=== PATIENT | female | born 1935 | race Caucasian/White ===

== ENCOUNTER 2017-07-31 17:01 | Inpatient (IN) | payer MEDICARE, BC ==
[~2017-07-31] VITALS: Ht 162.6 cm; Wt 65.1 kg
[2017-07-31 17:39] VITALS: BP 150/78
[2017-07-31] MEDS ORDERED: POTA10CA PO (19:17)
[2017-07-31] MEDS ORDERED: ALBU2.5V5 NEB (19:17)
[2017-07-31] MEDS ORDERED: TRIA15CR50 TP (19:17)
[2017-07-31] MEDS ORDERED: OXYC-323 PO (19:17)
[2017-07-31] MEDS ORDERED: LACT1CAP21 PO (19:17)
[2017-07-31] MEDS ORDERED: IPRA3AMP NEB (19:17)
[2017-07-31] MEDS ORDERED: BUDE0.5A3 NEB (19:17)
[2017-07-31] MEDS ORDERED: ALBUTEROL SULFATE 2.5 MG/3 ML NEBU. NEB PRN (20:45)
[2017-07-31] MEDS: TRIAMCINOLONE ACETONIDE 0.5% TOPICAL CREAM 15GM TUBE. TP SCH (21:00)
[2017-07-31] MEDS: BUDESONIDE 0.5 MG/2 ML NEBU NEB SCH (21:35)
[2017-07-31] MEDS: IPRATRPIUM/ALBUTEROL 0.5/2.5MG 3 ML NEBU. NEB SCH (21:35)
[2017-07-31] MEDS: LACTOBACILLUS RHAMNOSUS GG 1 CAPSULE. PO SCH (22:04)
[2017-08-01 05:57] VITALS: BP 135/72
[2017-08-01] MEDS: IPRATRPIUM/ALBUTEROL 0.5/2.5MG 3 ML NEBU. NEB SCH ×4 (05:57→21:58)
[2017-08-01 07:26] LABS: BASO % 0 % (0-3); EOS # 0.5 x10^3/uL (0.0-0.7); EOS % 3 % (0-3); HEMATOCRIT 26.2 % (36.0-47.0); HEMOGLOBIN 8.7 g/dL (12.0-15.5); LYMPH # 1.8 x10^3/uL (1.0-4.8); LYMPH % 11 % (24-48); MEAN CORPUSCULAR HEMOGLOBIN 33 pg (25-35); MEAN CORPUSCULAR HGB CONC 33 g/dL (31-37); MEAN CORPUSCULAR VOLUME 99 fL (79-100); MONO % 6 % (0-9); NEUT # 12.7 x10^3uL (1.8-7.7); NEUT % 80 % (31-73); PLATELET COUNT 222 x10^3/uL (140-400); RED BLOOD COUNT 2.63 x10^6/uL (3.50-5.40); RED CELL DISTRIBUTION WIDTH 14.7 % (11.5-14.5)
[2017-08-01 07:53] LABS: ALBUMIN 1.9 g/dL (3.4-5.0); ALBUMIN/GLOBULIN RATIO 0.5 (1.0-1.7); MAGNESIUM 1.9 mg/dL (1.8-2.4); POTASSIUM 3.7 mmol/L (3.5-5.1); TOTAL BILIRUBIN 0.7 mg/dL (0.2-1.0); TOTAL PROTEIN 5.5 g/dL (6.4-8.2)
[2017-08-01] MEDS: LACTOBACILLUS RHAMNOSUS GG 1 CAPSULE. PO SCH ×2 (08:19→19:52)
[2017-08-01] MEDS: TRIAMCINOLONE ACETONIDE 0.5% TOPICAL CREAM 15GM TUBE. TP SCH ×2 (08:20→19:53)
[2017-08-01] MEDS: POTASSIUM CHLORIDE 10 MEQ TABLET.ER. PO SCH ×4 (08:20→19:53)
[2017-08-01 08:28] LABS: % BANDS 2 % (0-9); % EOS 2 % (0-5); % LYMPHS 11 % (24-48); % MONOS 3 % (0-10); % SEGS 82 % (35-66); PLT ESTIMATE ADEQUATE (ADEQUATE)
[2017-08-01 08:29] LABS: ANISOCYTOSIS PRESENT; HYPOCHROMIA SLIGHT; POLYCHROMASIA PRESENT; TOXIC GRANULATION MOD
[2017-08-01] MEDS: BUDESONIDE 0.5 MG/2 ML NEBU NEB SCH ×2 (10:27→21:58)
[2017-08-01 15:31] VITALS: BP 138/54
--- NOTE | 2017-08-01 19:22 | HP ---
ADMIT DATE: 07/31/2017 SWING BED HISTORY AND PHYSICAL HISTORY OF PRESENT ILLNESS: This is an 82-year-old female who was transferred to swing bed status at [facility] from [facility]. She had been admitted to [facility] on 07/21/2017 for acute appendicitis. At that time, she had a ruptured appendicitis with abscess. She underwent a laparoscopic appendectomy and had difficulty with getting off intubation. She had bilateral pneumonia. She also had third degree heart block requiring low dose dopamine and pacemaker and subsequently had been on a ventilator for several days. She is weakened to the point of needing rehab and so admitted to swing bed. PAST MEDICAL HISTORY: 1. Recent ruptured appendix. 2. Status post laparoscopic appendectomy. 3. Acute hypoxic respiratory failure with bilateral lung infiltrates. This is resolved. 4. Moderate aortic insufficiency. 5. Third-degree AV block, now with pacemaker. 6. Renal insufficiency. 7. Increased troponin. 8. Hypertension. 9. Hyperlipidemia. 10. Bradycardia with third-degree block. 11. Osteoarthritis. PAST SURGICAL HISTORY: Cataract removal, hysterectomy, now appendectomy. FAMILY HISTORY: Diabetes and hypertension. SOCIAL HISTORY: Heavy alcohol user. Drugs: None. Tobacco: None. REVIEW OF SYSTEMS: The patient states she just feels achy and weak. MEDICATIONS: Reviewed and reconciled. ALLERGIES: None. PHYSICAL EXAMINATION: VITAL SIGNS: Blood pressure 135/72, pulse 75, temperature 97.7, pulse ox 93% on 2 liters, height 64 inches, weight 147 pounds. GENERAL: An 82-year-old who looks her stated age. She is calm and cooperative and alert. SKIN: Aged in appearance. HEENT: Her eyes are clear. Nose patent. Throat clear. NECK: Supple without adenopathy. LUNGS: Clear to auscultation. CARDIOVASCULAR: Regular rhythm and rate with a 2-3/6 murmur heard at the aortic and pulmonic area. ABDOMEN: Soft. Laparoscopic scars noted, nontender. EXTREMITIES: Without edema. LABORATORY DATA: White blood cell count 16,000, did have steroids at [place]. Hemoglobin 8.7, hematocrit 26.2. Chemistry: BUN 25, creatinine 1.0, calcium is 8, albumin is 1.9. ASSESSMENT: 1. Weakness. 2. Oropharyngeal dysphagia. 3. Status post appendectomy. 4. Status post acute hypoxic respiratory failure. 5. History of alcohol abuse. 6. Hypertension. 7. Severe protein-calorie malnutrition. We will need supplements. 8. Third degree heart block, now has a pacemaker. PLAN: PT, OT, speech assisting. TIM GAYLE DO DR: LATRELL/janet JOB#: [id number] / [id number]
[2017-08-02 05:54] VITALS: BP 169/83
[2017-08-02] MEDS: IPRATRPIUM/ALBUTEROL 0.5/2.5MG 3 ML NEBU. NEB SCH ×4 (06:04→21:08)
[2017-08-02] MEDS: TRIAMCINOLONE ACETONIDE 0.5% TOPICAL CREAM 15GM TUBE. TP SCH ×2 (08:51→20:23)
[2017-08-02] MEDS: LACTOBACILLUS RHAMNOSUS GG 1 CAPSULE. PO SCH ×2 (08:51→20:22)
[2017-08-02] MEDS: BUDESONIDE 0.5 MG/2 ML NEBU NEB SCH ×2 (10:51→21:08)
[2017-08-02] MEDS: HYDROCORTISONE 2.5% TOPICAL OINTMENT 30GM TUBE. TP SCH ×2 (12:10→14:00)
[2017-08-02] MEDS: POTASSIUM CHLORIDE 10 MEQ TABLET.ER. PO SCH ×2 (12:10→17:28)
[2017-08-03 05:12] VITALS: BP 165/66
[2017-08-03] MEDS: IPRATRPIUM/ALBUTEROL 0.5/2.5MG 3 ML NEBU. NEB SCH ×4 (06:12→21:00)
--- NOTE | 2017-08-03 07:55 | PN ---
DATE: 08/02/2017 HALF-WAY PROGRESS NOTE PROBLEMS: To address anterior chest wall rash and weakness. SUBJECTIVE: This is an 82-year-old female, who was admitted yesterday to the swing bed at [facility] from [place] where she has had a very prolonged hospitalization with multiple problems. Noted yesterday, she did have a little bit of a rash, though I did comment on it, but will take a closer look today. She still feels extremely weak. OBJECTIVE: VITAL SIGNS: Blood pressure 169/83, temperature 97.5, pulse 76, respirations 16, pulse ox is 98% on 2.5 liters. GENERAL: Color again is somewhat pale. LUNGS: Clear. CARDIOVASCULAR: Regular rhythm and rate. ABDOMEN: Soft, nontender. SKIN: The patient has flat macular erythematous rash, which looks consistent with dermatitis secondary to the chest leads around and in the areas where she had telemetry leads on. LABORATORY DATA: From yesterday albumin is 1.9. White blood cell count is 16, hemoglobin 8.7, hematocrit 26.2. ASSESSMENT: 1. Weakness. 2. Contact dermatitis. 3. Normochromic normocytic anemia. 4. Severe protein-calorie malnutrition. 5. Debilitation from previous hospitalization. 6. Please see H and P for other diagnoses. PLAN: Hydrocortisone 2.5% cream twice a day, keep an eye on that. Recheck her labs. Continue with PT and OT and may check a chest x-ray. TIM GAYLE DO DR: LATRELL/janet JOB#: [id number] / [id number]
[2017-08-03] MEDS: LACTOBACILLUS RHAMNOSUS GG 1 CAPSULE. PO SCH ×2 (08:49→19:41)
[2017-08-03] MEDS: POTASSIUM CHLORIDE 10 MEQ TABLET.ER. PO SCH ×3 (08:49→17:30)
[2017-08-03] MEDS: TRIAMCINOLONE ACETONIDE 0.5% TOPICAL CREAM 15GM TUBE. TP SCH ×2 (08:50→19:42)
[2017-08-03] MEDS: HYDROCORTISONE 2.5% TOPICAL OINTMENT 30GM TUBE. TP SCH ×2 (08:50→14:00)
[2017-08-03] MEDS: BUDESONIDE 0.5 MG/2 ML NEBU NEB SCH ×2 (10:34→21:00)
[2017-08-03 18:26] VITALS: BP 99/58
[2017-08-04] MEDS: IPRATRPIUM/ALBUTEROL 0.5/2.5MG 3 ML NEBU. NEB SCH ×4 (05:44→22:04)
[2017-08-04 06:06] VITALS: BP 139/63
[2017-08-04] MEDS: BUDESONIDE 0.5 MG/2 ML NEBU NEB SCH ×2 (09:34→22:03)
[2017-08-04] MEDS: POTASSIUM CHLORIDE 10 MEQ TABLET.ER. PO SCH ×3 (10:16→17:28)
[2017-08-04] MEDS: LACTOBACILLUS RHAMNOSUS GG 1 CAPSULE. PO SCH ×2 (10:16→20:06)
[2017-08-04] MEDS: HYDROCORTISONE 2.5% TOPICAL OINTMENT 30GM TUBE. TP SCH ×2 (10:16→14:15)
[2017-08-04] MEDS: TRIAMCINOLONE ACETONIDE 0.5% TOPICAL CREAM 15GM TUBE. TP SCH ×2 (10:16→20:07)
[2017-08-04 15:17] VITALS: BP 148/64
[2017-08-04 20:21] VITALS: BP 138/56
[2017-08-05 05:38] VITALS: BP 150/74
[2017-08-05] MEDS: IPRATRPIUM/ALBUTEROL 0.5/2.5MG 3 ML NEBU. NEB SCH ×4 (05:54→21:48)
[2017-08-05 06:42] LABS: HEMATOCRIT 25.8 % (36.0-47.0); HEMOGLOBIN 8.5 g/dL (12.0-15.5); RED BLOOD COUNT 2.59 x10^6/uL (3.50-5.40); WHITE BLOOD COUNT 9.4 x10^3/uL (4.0-11.0)
[2017-08-05 07:00] LABS: ALBUMIN 2.2 g/dL (3.4-5.0); ALBUMIN/GLOBULIN RATIO 0.6 (1.0-1.7); CALCIUM 8.2 mg/dL (8.5-10.1); POTASSIUM 4.4 mmol/L (3.5-5.1); TOTAL BILIRUBIN 0.8 mg/dL (0.2-1.0); TOTAL PROTEIN 5.9 g/dL (6.4-8.2)
[2017-08-05] MEDS: TRIAMCINOLONE ACETONIDE 0.5% TOPICAL CREAM 15GM TUBE. TP SCH ×2 (08:20→19:58)
[2017-08-05] MEDS: HYDROCORTISONE 2.5% TOPICAL OINTMENT 30GM TUBE. TP SCH ×2 (08:20→17:13)
[2017-08-05] MEDS: LACTOBACILLUS RHAMNOSUS GG 1 CAPSULE. PO SCH ×2 (08:20→19:52)
[2017-08-05] MEDS: POTASSIUM CHLORIDE 10 MEQ TABLET.ER. PO SCH ×3 (08:21→17:13)
[2017-08-05] MEDS: BUDESONIDE 0.5 MG/2 ML NEBU NEB SCH ×2 (10:36→21:48)
[2017-08-05] MEDS: DRONABINOL 2.5 MG CAPSULE PO SCH ×2 (11:35→16:36)
[2017-08-05 18:08] VITALS: BP 150/61
--- NOTE | 2017-08-05 19:18 | RAD ---
INDICATION: Left arm swelling. TECHNIQUE: Grayscale, color-flow, and spectral waveform analysis was performed. Exam was technically difficult, recent pacemaker placement limiting evaluation. FINDINGS: All visualized vein segments on the left are compressible with normal phasicity of waveform and augmentation. The left subclavian vein is difficult to evaluate. The right subclavian vein is evaluated and there is eccentric nonocclusive thrombus noted which may be chronic. There is fluid about the pacemaker cartridge. IMPRESSION: 1. No evidence of deep vein thrombosis in the visualized left upper extremity. Left subclavian vein not well evaluated. 2. 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 3. Small amount of fluid about the pacemaker cartridge. Electronically signed by: Marcellus Lim MD (08/05/2017 7:15 PM) [id number]
[2017-08-05] MEDS: oxyCODONE/APAP 5/325 1 TAB TABLET PO PRN (19:53)
[2017-08-06 04:57] VITALS: BP_SYST 152; BP_SYST 158; BP_DIAS 68; BP_DIAS 74
[2017-08-06] MEDS: IPRATRPIUM/ALBUTEROL 0.5/2.5MG 3 ML NEBU. NEB SCH ×4 (05:39→21:42)
[2017-08-06] MEDS: LACTOBACILLUS RHAMNOSUS GG 1 CAPSULE. PO SCH ×2 (08:25→20:02)
[2017-08-06] MEDS: POTASSIUM CHLORIDE 10 MEQ TABLET.ER. PO SCH ×3 (08:25→17:08)
[2017-08-06] MEDS: HYDROCORTISONE 2.5% TOPICAL OINTMENT 30GM TUBE. TP SCH ×2 (08:26→13:59)
[2017-08-06] MEDS: TRIAMCINOLONE ACETONIDE 0.5% TOPICAL CREAM 15GM TUBE. TP SCH ×2 (08:26→20:02)
[2017-08-06] MEDS: BUDESONIDE 0.5 MG/2 ML NEBU NEB SCH ×2 (11:29→21:42)
[2017-08-06] MEDS: DRONABINOL 2.5 MG CAPSULE PO SCH ×2 (12:16→17:08)
[2017-08-06] MEDS: NYSTATIN 100,000 UNIT/GM TOPICAL CREAM 15GM TUBE. TP SCH ×2 (13:55→20:04)
[2017-08-06 18:12] VITALS: BP 151/72
[2017-08-06 19:03] VITALS: BP 121/57
--- NOTE | 2017-08-07 04:30 | PN ---
DATE: 08/06/2017 SUBJECTIVE: The patient is an 82-year-old female patient who was transferred to swing bed at [facility] from [facility] and she had been admitted to [facility] since 07/21/2017 for acute appendicitis. At that time, she had had ruptured appendicitis with abscess. She underwent a laparoscopic appendectomy and had difficulty with getting off intubation. She had bilateral pneumonia. She also had third degree heart block requiring low-dose dopamine and pacemaker placement. She was successfully extubated; however, she is extremely weakened, and therefore, she was admitted to swing bed for further rehabilitation. The nursing staff are concerned that she has markedly swollen left upper extremity. She was in shoulder immobilizer and she has a pacemaker placed in the left infraclavicular fossa. She has also gained about 21 pounds since admission to [facility], she was 128 and now is about 148 and so I did venous Doppler ultrasound of the left upper extremity, which was basically negative. When I questioned her today, she denied any complaint. In fact, she is more awake today and alert. She has been participating with physical therapy, walking with a walker. Generally, appetite continued to be poor, although according to the nursing staff, she has eaten more. I did start her on Marinol 2.5 mg twice a day. PHYSICAL EXAMINATION: GENERAL: When I examined her today, she looked well and was clearly in no apparent respiratory distress and pale, but no jaundice, cyanosis or thyromegaly. No jugular venous distension. No lower limb edema. VITAL SIGNS: Her heart rate was 88, blood pressure 158/74, temperature was 98.1, respiratory rate 18 and oxygen saturation was 95% on 2 liters of oxygen. HEAD, EYES, EARS, NOSE AND THROAT: Showed normocephalic, atraumatic. NECK: Supple. HEART: Showed normal first and second heart sounds with no gallop, rub or murmur. CHEST: Clear to auscultation. No crepitation or rhonchi. ABDOMEN: Distended, soft, nontender. No guarding or rigidity. No organomegaly. Hernial orifice intact. Bowel sounds normal. NEUROLOGIC: She was awake, alert, responding appropriately. All cranial nerves intact. MUSCULOSKELETAL: She moves extremities without difficulty. She ambulates with a walker with standby assist. Examination of the upper extremities showed the left upper extremity definitely more swollen than the right upper extremity. The surgical wound in the left infraclavicular fossa is healing nicely with no redness, tenderness or discharge. There is no fluid collection around the pacemaker and according to the sonographist, there is no DVT in the left upper extremity. There is nonocclusive thrombus in the right subclavian vein. LABORATORY DATA: Showed that her serum sodium was 141, potassium 4.4, chloride 107, bicarbonate 21, anion gap of 13, BUN of 9, creatinine 1. Estimated GFR was 53 mL per minute. Her glucose was 69. Calcium was 8.2. Total bilirubin, AST, ALT, alkaline phosphatase were normal. Total protein 5.9. Albumin 2.2. Her white cell count was 9400, hemoglobin 8.5, hematocrit 26, MCV 100 and platelet count 255,000. IMPRESSION: In summary, this is an 82-year-old female patient whom I have seen with: 1. Marked swelling of the left upper extremity, which is probably a combination of the fact that she has a pacemaker leads in the left subclavian vein as well as she was in shoulder immobilizer. Her venous Doppler ultrasound was negative. She has severe anorexia and poor appetite for which we started her on Marinol and apparently she is now eating a little bit more. 2. She has gained about 20 pounds since admission to the [facility] and she definitely has swelling of both lower extremities and left upper extremity. Other issues include: a) Ruptured appendix, status post laparoscopic appendectomy. b) Acute hypoxic respiratory failure, bilateral lung infiltrate that has resolved. c) Moderate aortic insufficiency. d) Third degree AV block, status post permanent pacemaker placement. e) Renal insufficiency. f) Hypertension. g) Hyperlipidemia. h) Osteoarthritis. PLAN: My plan is to start her on a small dose of Lasix 20 mg once a day starting tomorrow. We will monitor her weight and lab work on a regular basis. DICK MOREJON MD DR: ARUN/janet JOB#: [id number] / [id number]
[2017-08-07] MEDS: IPRATRPIUM/ALBUTEROL 0.5/2.5MG 3 ML NEBU. NEB SCH ×4 (05:41→21:31)
[2017-08-07 06:01] VITALS: BP 135/59
[2017-08-07] MEDS: LACTOBACILLUS RHAMNOSUS GG 1 CAPSULE. PO SCH ×2 (08:24→21:06)
[2017-08-07] MEDS: DRONABINOL 2.5 MG CAPSULE PO SCH ×2 (08:24→17:28)
[2017-08-07] MEDS: FUROSEMIDE 20 MG TABLET PO SCH (08:24)
[2017-08-07] MEDS: POTASSIUM CHLORIDE 10 MEQ TABLET.ER. PO SCH ×3 (08:24→17:30)
[2017-08-07] MEDS: NYSTATIN 100,000 UNIT/GM TOPICAL CREAM 15GM TUBE. TP SCH ×2 (09:00→21:00)
[2017-08-07] MEDS: BUDESONIDE 0.5 MG/2 ML NEBU NEB SCH ×2 (10:23→21:31)
[2017-08-07] MEDS: oxyCODONE/APAP 5/325 1 TAB TABLET PO PRN (11:00)
[2017-08-07] MEDS: TRIAMCINOLONE ACETONIDE 0.5% TOPICAL CREAM 15GM TUBE. TP SCH ×2 (17:29→21:07)
[2017-08-07] MEDS: HYDROCORTISONE 2.5% TOPICAL OINTMENT 30GM TUBE. TP SCH ×2 (17:29→17:30)
[2017-08-07 19:28] VITALS: BP 167/52
[2017-08-07] MEDS: MELATONIN 3 MG TABLET PO PRN (21:16)
[2017-08-08] MEDS: IPRATRPIUM/ALBUTEROL 0.5/2.5MG 3 ML NEBU. NEB SCH ×4 (06:05→22:13)
[2017-08-08 06:28] VITALS: BP 153/64
[2017-08-08 07:24] LABS: CALCIUM 8.3 mg/dL (8.5-10.1); CREATININE 1.1 mg/dL (0.6-1.0); GFR 47.4; POTASSIUM 4.2 mmol/L (3.5-5.1)
[2017-08-08] MEDS: POTASSIUM CHLORIDE 10 MEQ TABLET.ER. PO SCH ×3 (08:08→18:25)
[2017-08-08] MEDS: FUROSEMIDE 20 MG TABLET PO SCH (08:08)
[2017-08-08] MEDS: LACTOBACILLUS RHAMNOSUS GG 1 CAPSULE. PO SCH ×2 (08:08→21:28)
--- NOTE | 2017-08-08 09:24 | PDOC2 ---
TALIA RODAS ELECTRIC SOLDERER 08/08/17 0923: CONSULT Date of Admission DATE: 08/08/17 TIME: 09:23 Reason for Consult: edema left upper arm s/p ppm History of Present Illness Ms Somers is an 82 year old female recently admitted to [facility] with perforated appendix and underwent emergent appendectomy. She developed high grade AV block and subsequently underwent pacemaker placement. At discharge it was felt she required skilled care so was transferred to [facility]. She was noted to have gained significant weight during her admission and actually her shoes and clothes were not fitting. Also it was noted that her left upper arm was significantly swollen. Sonogram failed to demonstrate DVT however. She denies any dyspnea , chest discomfort, palpitations. She complains of edema in the left arm and her legs. She reports that otherwise she is feeling much better. Past Medical History echo 07/22/17 The left ventricle is hyperdynamic. The Ejection Fraction is 60%. There is mild to moderate concentric left ventricular hypertrophy. Transmitral Doppler flow pattern is Grade II-pseudonormal filling dynamics. The left atrium is moderately dilated. The right atrium is mildly dilated. Poor visualization of the aortic valve. The aortic valve is moderately calcified. Doppler and Color Flow revealed moderate aortic regurgitation. There is mild valvular aortic stenosis. Doppler and Color-flow revealed severe mitral regurgitation. Mitral annular calcification is mild to moderate. Doppler and Color Flow revealed mild to moderate tricuspid regurgitation. The PA pressure was estimated to be 37 mmHg but it may be significantly higher. Not able to visualize the pulmonic valve. No significant pericardial effusion PAST MEDICAL/SURGICAL HISTORY: Pacemaker placement, appendectomy, cataract extraction, lens implants, severe mitral regurg, moderate aortic regurg, off and on diarrhea, arthritis, depression, anxiety. Family History non contributory Social History non smoker, prior heavy drinker, no illicit drugs Current Medications Current Medications Albuterol Sulfate (Ventolin) 2.5 mg PRN Q4HRS PRN NEB SHORTNESS OF BREATH; Start 07/31/17 at 20:45 Budesonide (Pulmicort) 0.5 mg BID NEB Last administered on 08/07/17at 21:31; Start 07/31/17 at 21:00 Albuterol/ Ipratropium (Duoneb) 3 ml QID NEB Last administered on 08/08/17at 06: 05; Start 07/31/17 at 21:00 Oxycodone/ Acetaminophen (Percocet 5/325) 1 tab PRN Q4HRS PRN PO PAIN Last administered on 08/07/17 11:00; Start 07/31/17 at 20:45 Triamcinolone Acetonide (Aristocort) 1 opal BID TP Last administered on 21:07; Start 07/31/17 at 21:00 Lactobacillus Rhamnosus (Culturelle) 1 cap BID PO Last administered on 08:08; Start 07/31/17 at 21:00 Potassium Chloride (Klor-Con) 10 meq TIDPC PO Last administered on 08/08/17 08: 08; Start 08/01/17 at 08:30 Hydrocortisone (Hytone) 1 opal BID92 TP Last administered on 08/07/17 17:30; Start 08/02/17 at 09:00 Dronabinol (Marinol) 2.5 mg BIDACLD PO Last administered on 08/07/17 17:28; Start 08/05/17 at 11:30 Nystatin (Mycostatin) 1 opal BID TP Last administered on 08/07/17 21:00; Start 08/06/17 at 09:00 Furosemide (Lasix) 20 mg DAILY PO Last administered on 08/08/17 08:08; Start at 09:00 Melatonin 3 mg PRN QHS PRN PO INSOMNIA Last administered on 08/07/17 21:16; Start 08/07/17 at 20:45 Active Scripts Active Reported Percocet 5-325 Mg Tablet (Oxycodone Hcl/Acetaminophen) 1 Each Tablet 1 Tab PO PRN Q4HRS PRN Triamcinolone Acetonide 15 Gm Cream..g. 1 Opal TP BID Potassium Chloride 10 Meq Capsule.er 1 Cap PO TIDPC Culturelle (Lactobacillus Rhamnosus Gg) 1 Each Capsule 1 Each PO BID Duoneb 0.5-3(2.5) Mg/3 Ml (Albuterol/Ipratropium) 3 Ml Ampul.neb 3 Ml NEB QID Pulmicort (Budesonide) 0.5 Mg/2 Ml Ampul.neb 1 Vial NEB BID Albuterol Sulfate Neb Soln (Albuterol Sulfate) 2.5 Mg/3 Ml Vial.neb 1 Vial NEB PRN Q4HRS PRN Allergies: Coded Allergies: No Known Drug Allergies (Unverified , 07/31/17) Review of System as per HPI General: Alert, Oriented X3, Cooperative, No acute distress HEENT: Atraumatic, EOMI Lungs: Clear to auscultation, Normal air movement Heart: Regular rate, Normal S1, Normal S2, Other (+2/6 systolic murmur, soft diastolic murmur, no gallops, clicks or rubs) Abdomen: Normal bowel sounds, Soft, No tenderness Extremities: Normal pulses, Other (+2edema, bilateral lower extremities and left upper extremity) Neuro: Normal speech, Strength at 5/5 X4 ext Psych/Mental Status: Mental status NL, Mood NL VITALS Vital Signs Date Time Temp Pulse Resp B/P (MAP) Pulse Ox O2 Delivery O2 Flow Rate FiO2 08/08/17 08:00 Nasal Cannula 2.0 08/08/17 06:28 97.8 83 20 153/64 (93) 98 Labs Laboratory Tests Test 08/07/17 16:32 08/08/17 07:07 Glucose (Fingerstick) 114 mg/dL (70-99) Sodium Level 139 mmol/L (136-145) Potassium Level 4.2 mmol/L (3.5-5.1) Chloride Level 104 mmol/L (98-107) Carbon Dioxide Level 26 mmol/L (21-32) Anion Gap 9 (6-14) Blood Urea Nitrogen 10 mg/dL (7-20) Creatinine 1.1 mg/dL (0.6-1.0) Estimated GFR (Cockcroft-Gault) 47.4 Glucose Level 91 mg/dL (70-99) Calcium Level 8.3 mg/dL (8.5-10.1) Images sono - IMPRESSION: 1. No evidence of deep vein thrombosis in the visualized left upper extremity. Left subclavian vein not well evaluated. 2. 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 3. Small amount of fluid about the pacemaker cartridge. Assessment/Plan 1. Upper extremity edema - sono negative for DVT, likely dependant 2. SSS s/p PPM - inc healing with mild edema but no erythema or signs of infection 3. hypertension resume antihypertensives 4. VHD - sees Dr Oropeza 5. hyperlipidemia - statin Resume antihypertensives, continue diuretic for edema and statin therapy for hyperlipidemia. Problems: CAMI CHURCH MD 08/08/17 1736: CONSULT Allergies: Coded Allergies: No Known Drug Allergies (Unverified , 07/31/17) Assessment/Plan Patient seen and examined. Agree with TANGLED YARN WORKER's assessment and plan. Left upper extremity edema most probably dependent edema in the background of generalized anasarca from hypoalbuminemia Cannot rule out her mild acute on chronic diastolic heart failure as well We will diurese gently with Lasix Recent 2-D echo showed normal LV function with severe mitral regurgitation as stated above Left upper extremity venous duplex scan did not show any deep venous thrombosis Pacemaker appears to be functioning well Thank you for your consultation Problems: TALIA RODAS APRN Aug 08, 2017 09:23 CAMI CHURCH MD Aug 08, 2017 17:36
[2017-08-08] MEDS: BUDESONIDE 0.5 MG/2 ML NEBU NEB SCH ×2 (10:44→22:13)
[2017-08-08] MEDS: DRONABINOL 2.5 MG CAPSULE PO SCH ×2 (13:56→18:25)
[2017-08-08] MEDS: HYDROCORTISONE 2.5% TOPICAL OINTMENT 30GM TUBE. TP SCH (14:00)
--- NOTE | 2017-08-08 14:15 | PN ---
DATE: 08/07/2017 SUBJECTIVE: The spleen is sitting in her chair comfortably, in no apparent distress. She is definitely more awake, alert, although continued to be somewhat confused occasionally. Her mobility has improved, has been up and about walking with a walker without assistance. She continued to have swelling of her left upper extremity. We did Doppler ultrasound, which showed no evidence of any deep vein thrombosis. I did start her on Lasix this morning and her appetite continued to be extremely poor and we did start her on dronabinol. OBJECTIVE: GENERAL: When I examined her this afternoon, she looked well and was clearly in no apparent respiratory distress. Pale. No jaundice, cyanosis, or thyromegaly. No jugular venous distension. No limb edema. VITAL SIGNS: Her heart rate was 81, blood pressure was 135/59, temperature was 97.8, respiratory rate was 18 and oxygen saturation was 96% on 2 liters of oxygen. HEAD, EYES, EARS, NOSE AND THROAT: Showed normocephalic, atraumatic. NECK: Supple. HEART: Showed normal first and second sounds. No gallop, rub or murmur. CHEST: Clear to auscultation. No crepitation or rhonchi. ABDOMEN: Distended, soft, and nontender. No guarding or rigidity. No organomegaly. Hernial orifice intact. Bowel sounds normal. NEUROLOGIC: She was somewhat confused, but otherwise all cranial nerves intact. She moves extremities without difficulty. She ambulates with a walker without assistance. LABORATORY DATA: Her most recent lab work showed a white cell count 9400, hemoglobin 8.5, hematocrit 25, MCV 100, and platelet count 255,000. Her chemistry showed a serum sodium 141, potassium 4.4, chloride 107, bicarbonate 21, anion gap of 13, BUN 9, creatinine 1, estimated GFR was 53 mL per minute. Her glucose was 69, calcium was 8.2. Total bilirubin, AST, ALT, alkaline phosphatase were normal. Total protein 5.9, albumin 2.2. ASSESSMENT AND PLAN: 1. Markedly swollen left upper extremity for which we did venous Doppler ultrasound, which was negative. She has obviously the leads of the pacemaker in the left subclavian vein as well as she was in a shoulder immobilizer. 2. Severe anorexia and poor appetite for which we start her on Marinol. She has severe protein calorie malnutrition with serum albumin of only 2.2. 3. She has gained about 20 pounds since admission to [facility]. She definitely has swollen lower extremities and left lower extremity for which we started her on Lasix 20 mg once a day. 4. Ruptured appendix, status post laparoscopic appendectomy. 5. Acute hypoxic respiratory failure due to bilateral lung infiltrate that has resolved. 6. Moderate aortic insufficiency. 7. Third-degree AV block status post permanent pacemaker placement. 8. Renal insufficiency. 9. Hypertension. 10. Hyperlipidemia. 11. Osteoarthritis. PLAN: Continue with this current plan of medication. I will monitor her electrolytes. I will send basic metabolic profile tomorrow and adjust her medication accordingly. DICK MOREJNO MD DR: ARUN/janet JOB#: [id number] / [id number]
[2017-08-08] MEDS: FUROSEMIDE 40 MG/4 ML VIAL IVP SCH (18:25)
[2017-08-08 19:28] VITALS: BP 132/80
[2017-08-08] MEDS: TRIAMCINOLONE ACETONIDE 0.5% TOPICAL CREAM 15GM TUBE. TP SCH (21:00)
[2017-08-08] MEDS: NYSTATIN 100,000 UNIT/GM TOPICAL CREAM 15GM TUBE. TP SCH (22:00)
[2017-08-09] MEDS: IPRATRPIUM/ALBUTEROL 0.5/2.5MG 3 ML NEBU. NEB SCH ×4 (06:11→21:15)
[2017-08-09 07:31] VITALS: BP 163/63
[2017-08-09] MEDS: HYDROCORTISONE 2.5% TOPICAL OINTMENT 30GM TUBE. TP SCH ×3 (09:00→14:00)
[2017-08-09] MEDS: NYSTATIN 100,000 UNIT/GM TOPICAL CREAM 15GM TUBE. TP SCH ×2 (09:00→21:15)
[2017-08-09] MEDS: FUROSEMIDE 20 MG TABLET PO SCH (09:08)
[2017-08-09] MEDS: TRIAMCINOLONE ACETONIDE 0.5% TOPICAL CREAM 15GM TUBE. TP SCH ×2 (09:08→21:25)
[2017-08-09] MEDS: FUROSEMIDE 40 MG/4 ML VIAL IVP SCH (09:09)
[2017-08-09] MEDS: POTASSIUM CHLORIDE 10 MEQ TABLET.ER. PO SCH ×3 (09:09→21:15)
[2017-08-09] MEDS: LACTOBACILLUS RHAMNOSUS GG 1 CAPSULE. PO SCH ×2 (09:09→21:15)
--- NOTE | 2017-08-09 09:31 | PDOC ---
PROGRESS NOTES Assessment 1. Left upper extremity edema - US negative for DVT, likely dependant in the background of generalized anasarca from hypoalbuminemia and mild diastolic heart failure. Recent 2-D echo showed normal LV function. Edema improved with intravenous diuretics she received overnight. 2. SSS s/p PPM -clinically stable. 3. Hypertension continue current medical regimen 4. VHD -being followed by primary bulk fluids handler Dr Oropeza 5. Hyperlipidemia - statin Problems: Subjective Edema improved Objective Vital Signs Date Time Temp Pulse Resp B/P (MAP) Pulse Ox O2 Delivery O2 Flow Rate FiO2 08/09/17 07:31 97.9 77 20 163/63 (96) 95 Nasal Cannula 2.0 Intake and Output 08/09/17 06:59 Intake Total 520 ml Balance 520 ml Intake Oral 520 ml # Voids 25 # Bowel Movements 2 Abdomen: Soft, No tenderness Heart: Regular rate Extremities: Other (1-2+ pitting edema) General: Alert, No acute distress HEENT: PERRLA Lungs: Clear to auscultation Neck: Supple Psych/Mental Status: Mood NL Review of Relevant I have reviewed the following items rufus (where applicable) has been applied. Labs Laboratory Tests Test 08/07/17 16:32 08/08/17 07:07 Glucose (Fingerstick) 114 mg/dL (70-99) Sodium Level 139 mmol/L (136-145) Potassium Level 4.2 mmol/L (3.5-5.1) Chloride Level 104 mmol/L (98-107) Carbon Dioxide Level 26 mmol/L (21-32) Anion Gap 9 (6-14) Blood Urea Nitrogen 10 mg/dL (7-20) Creatinine 1.1 mg/dL (0.6-1.0) Estimated GFR (Cockcroft-Gault) 47.4 Glucose Level 91 mg/dL (70-99) Calcium Level 8.3 mg/dL (8.5-10.1) Medications Current Medications Albuterol Sulfate (Ventolin) 2.5 mg PRN Q4HRS PRN NEB SHORTNESS OF BREATH; Start 07/31/17 at 20:45 Budesonide (Pulmicort) 0.5 mg BID NEB Last administered on 08/08/17at 22:13; Start 07/31/17 at 21:00 Albuterol/ Ipratropium (Duoneb) 3 ml QID NEB Last administered on 08/09/17 06: 11; Start 07/31/17 at 21:00 Oxycodone/ Acetaminophen (Percocet 5/325) 1 tab PRN Q4HRS PRN PO PAIN Last administered on 08/07/17 11:00; Start 07/31/17 at 20:45 Triamcinolone Acetonide (Aristocort) 1 opal BID TP Last administered on 09:08; Start 07/31/17 at 21:00 Lactobacillus Rhamnosus (Culturelle) 1 cap BID PO Last administered on 09:09; Start 07/31/17 at 21:00 Potassium Chloride (Klor-Con) 10 meq TIDPC PO Last administered on 08/09/17 09: 09; Start 08/01/17 at 08:30 Hydrocortisone (Hytone) 1 opal BID92 TP Last administered on 08/09/17 09:00; Start 08/02/17 at 09:00 Dronabinol (Marinol) 2.5 mg BIDACLD PO Last administered on 08/08/17 18:25; Start 08/05/17 at 11:30 Nystatin (Mycostatin) 1 opal BID TP Last administered on 08/09/17 09:00; Start 08/06/17 at 09:00 Furosemide (Lasix) 20 mg DAILY PO Last administered on 08/09/17 09:08; Start at 09:00 Melatonin 3 mg PRN QHS PRN PO INSOMNIA Last administered on 08/07/17 21:16; Start 08/07/17 at 20:45 Furosemide (Lasix) 40 mg BID92 IVP Last administered on 08/09/17 09:09; Start 08/08/17 at 17:45; Stop 08/09/17 at 09:01; Status DC Active Scripts Active Reported Percocet 5-325 Mg Tablet (Oxycodone Hcl/Acetaminophen) 1 Each Tablet 1 Tab PO PRN Q4HRS PRN Triamcinolone Acetonide 15 Gm Cream..g. 1 Opal TP BID Potassium Chloride 10 Meq Capsule.er 1 Cap PO TIDPC Culturelle (Lactobacillus Rhamnosus Gg) 1 Each Capsule 1 Each PO BID Duoneb 0.5-3(2.5) Mg/3 Ml (Albuterol/Ipratropium) 3 Ml Ampul.neb 3 Ml NEB QID Pulmicort (Budesonide) 0.5 Mg/2 Ml Ampul.neb 1 Vial NEB BID Albuterol Sulfate Neb Soln (Albuterol Sulfate) 2.5 Mg/3 Ml Vial.neb 1 Vial NEB PRN Q4HRS PRN Vitals/I & O Vital Sign - Last 24 Hours 08/08/17 08/08/17 08/08/17 08/08/17 10:44 10:45 16:31 19:28 Temp 98.1 Pulse 74 B/P (MAP) 132/80 (97) Pulse Ox 94 94 90 98 O2 Delivery Room Air Room Air Room Air 08/08/17 08/08/17 08/08/17 08/09/17 20:00 22:15 22:18 06:10 Pulse Ox 93 93 O2 Delivery Nasal Cannula Room Air Room Air Room Air O2 Flow Rate 2.0 08/09/17 07:31 Temp 97.9 Pulse 77 Resp 20 B/P (MAP) 163/63 (96) Pulse Ox 95 O2 Delivery Nasal Cannula O2 Flow Rate 2.0 Intake and Output 08/08/17 08/08/17 08/09/17 14:59 22:59 06:59 Intake Total 420 ml 100 ml Balance 420 ml 100 ml CAMI CHURCH MD Aug 09, 2017 09:31
[2017-08-09] MEDS: BUDESONIDE 0.5 MG/2 ML NEBU NEB SCH ×2 (10:46→21:15)
[2017-08-09] MEDS: DRONABINOL 2.5 MG CAPSULE PO SCH ×2 (17:14→21:15)
[2017-08-09 19:00] VITALS: BP 116/53
[2017-08-09] MEDS: MELATONIN 3 MG TABLET PO PRN (21:16)
[2017-08-10] MEDS: IPRATRPIUM/ALBUTEROL 0.5/2.5MG 3 ML NEBU. NEB SCH ×4 (06:23→21:38)
[2017-08-10 08:00] VITALS: BP 107/52
[2017-08-10] MEDS: NYSTATIN 100,000 UNIT/GM TOPICAL CREAM 15GM TUBE. TP SCH ×2 (09:00→21:00)
[2017-08-10] MEDS: FUROSEMIDE 20 MG TABLET PO SCH (09:09)
[2017-08-10] MEDS: LACTOBACILLUS RHAMNOSUS GG 1 CAPSULE. PO SCH ×2 (09:09→21:26)
[2017-08-10] MEDS: POTASSIUM CHLORIDE 10 MEQ TABLET.ER. PO SCH ×3 (09:09→17:01)
[2017-08-10] MEDS: HYDROCORTISONE 2.5% TOPICAL OINTMENT 30GM TUBE. TP SCH ×2 (09:10→14:00)
[2017-08-10] MEDS: TRIAMCINOLONE ACETONIDE 0.5% TOPICAL CREAM 15GM TUBE. TP SCH ×2 (09:10→21:26)
[2017-08-10] MEDS: BUDESONIDE 0.5 MG/2 ML NEBU NEB SCH ×2 (10:28→21:38)
[2017-08-10] MEDS: DRONABINOL 2.5 MG CAPSULE PO SCH ×2 (12:11→17:01)
[2017-08-10 20:25] VITALS: BP 135/69
[2017-08-10] MEDS: MELATONIN 3 MG TABLET PO PRN (21:26)
[2017-08-11] MEDS: IPRATRPIUM/ALBUTEROL 0.5/2.5MG 3 ML NEBU. NEB SCH ×4 (06:37→21:53)
[2017-08-11 08:00] VITALS: BP 124/59
[2017-08-11] MEDS: TRIAMCINOLONE ACETONIDE 0.5% TOPICAL CREAM 15GM TUBE. TP SCH ×2 (09:00→21:00)
[2017-08-11] MEDS: HYDROCORTISONE 2.5% TOPICAL OINTMENT 30GM TUBE. TP SCH ×2 (09:00→13:44)
[2017-08-11] MEDS: NYSTATIN 100,000 UNIT/GM TOPICAL CREAM 15GM TUBE. TP SCH ×2 (09:00→21:00)
[2017-08-11] MEDS: FUROSEMIDE 20 MG TABLET PO SCH (09:05)
[2017-08-11] MEDS: LACTOBACILLUS RHAMNOSUS GG 1 CAPSULE. PO SCH ×2 (09:06→19:57)
[2017-08-11] MEDS: POTASSIUM CHLORIDE 10 MEQ TABLET.ER. PO SCH ×3 (09:06→17:02)
[2017-08-11] MEDS: BUDESONIDE 0.5 MG/2 ML NEBU NEB SCH ×2 (11:29→21:53)
[2017-08-11] MEDS: DRONABINOL 2.5 MG CAPSULE PO SCH ×2 (12:07→17:01)
[2017-08-11] MEDS ORDERED: FURO20TA3 PO (13:19)
[2017-08-11] MEDS ORDERED: MELA3TAB2 PO (13:19)
[2017-08-11] MEDS ORDERED: DRON2.5C2 PO (13:19)
[2017-08-11 13:31] LABS: BASO # 0.1 x10^3/uL (0.0-0.2); BASO % 1 % (0-3); EOS # 0.4 x10^3/uL (0.0-0.7); EOS % 5 % (0-3); HEMATOCRIT 27.2 % (36.0-47.0); HEMOGLOBIN 9.1 g/dL (12.0-15.5); LYMPH # 1.5 x10^3/uL (1.0-4.8); LYMPH % 19 % (24-48); MEAN CORPUSCULAR HEMOGLOBIN 32 pg (25-35); MEAN CORPUSCULAR HGB CONC 34 g/dL (31-37); MEAN CORPUSCULAR VOLUME 97 fL (79-100); MONO # 0.8 x10^3/uL (0.0-1.1); MONO % 10 % (0-9); NEUT % 65 % (31-73); PLATELET COUNT 321 x10^3/uL (140-400); RED BLOOD COUNT 2.81 x10^6/uL (3.50-5.40); RED CELL DISTRIBUTION WIDTH 15.2 % (11.5-14.5); WHITE BLOOD COUNT 7.7 x10^3/uL (4.0-11.0)
--- NOTE | 2017-08-11 13:32 | PDOC3 ---
Discharge Summary Visit Information Date of Admission: Jul 31, 2017 Date of Discharge: Aug 12, 2017 Final Diagnosis EARLINE HISTORY: 1. Recent ruptured appendix. 2. Status post laparoscopic appendectomy. 3. Acute hypoxic respiratory failure with bilateral lung infiltrates. This is resolved. 4. Moderate aortic insufficiency. 5. Third-degree AV block, now with pacemaker. 6. Renal insufficiency. 7. Increased troponin. 8. Hypertension. 9. Hyperlipidemia. 10. Bradycardia with third-degree block. 11. Osteoarthritis. 12.WEAKNESS 13 ANOREXIA 14. INSOMNIA 15. 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 SEVER PROTEIN CALORIE MALNUTRITION Problems: Brief Hospital Course Allergies Allergies Coded Allergies Type Severity Reaction Last Updated Verified No Known Drug Allergies 07/31/17 No Vital Signs Vital Signs Date Time Temp Pulse Resp B/P (MAP) Pulse Ox O2 Delivery O2 Flow Rate FiO2 08/11/17 12:50 Room Air 08/11/17 11:30 95 08/10/17 20:25 98.0 84 18 135/69 (91) 08/10/17 08:00 2.0 Brief Hospital Course Ms. Somers is a 82 old [sex] who presented with [ ] HISTORY OF PRESENT ILLNESS: This is an 82-year-old female who was transferred to swing bed status at [facility] from . She had been admitted to on 07/21/2017 for acute appendicitis. At that time, she had a ruptured appendicitis with abscess. She underwent a laparoscopic appendectomy and had difficulty with getting off intubation. She had bilateral pneumonia. She also had third degree heart block requiring low dose dopamine and pacemaker and subsequently had been on a ventilator for several days. She is weakened to the point of needing rehab and so admitted to swing bed. SHE DID WELL IN HER REHAB BUT HER APPETITE HAS BEEN POOR. HE WAS STARTED ON [place]. Discharge Information Condition at Discharge: Improved, Stable Disposition/Orders: D/C to Home w/ HH Dischare Medications Current Medications Albuterol Sulfate (Ventolin) 2.5 mg PRN Q4HRS PRN NEB SHORTNESS OF BREATH; Start 07/31/17 at 20:45 Budesonide (Pulmicort) 0.5 mg BID NEB Last administered on 08/11/17at 11:29; Start 07/31/17 at 21:00 Albuterol/ Ipratropium (Duoneb) 3 ml QID NEB Last administered on 08/11/17 11: 29; Start 07/31/17 at 21:00 Oxycodone/ Acetaminophen (Percocet 5/325) 1 tab PRN Q4HRS PRN PO PAIN Last administered on 08/07/17 11:00; Start 07/31/17 at 20:45 Triamcinolone Acetonide (Aristocort) 1 opal BID TP Last administered on 21:26; Start 07/31/17 at 21:00 Lactobacillus Rhamnosus (Culturelle) 1 cap BID PO Last administered on 09:06; Start 07/31/17 at 21:00 Potassium Chloride (Klor-Con) 10 meq TIDPC PO Last administered on 08/11/17 12: 08; Start 08/01/17 at 08:30 Hydrocortisone (Hytone) 1 opal BID92 TP Last administered on 08/10/17 09:10; Start 08/02/17 at 09:00 Dronabinol (Marinol) 2.5 mg BIDACLD PO Last administered on 08/11/17 12:07; Start 08/05/17 at 11:30 Nystatin (Mycostatin) 1 opal BID TP Last administered on 08/11/17 09:00; Start 08/06/17 at 09:00 Furosemide (Lasix) 20 mg DAILY PO Last administered on 08/11/17 09:05; Start at 09:00 Melatonin 3 mg PRN QHS PRN PO INSOMNIA Last administered on 08/10/17 21:26; Start 08/07/17 at 20:45 Furosemide (Lasix) 40 mg BID92 IVP Last administered on 08/09/17 09:09; Start 08/08/17 at 17:45; Stop 08/09/17 at 09:01; Status DC Active Scripts Active Dronabinol 2.5 Mg Capsule 2.5 Mg PO BIDACLD 60 Days Reported Percocet 5-325 Mg Tablet (Oxycodone Hcl/Acetaminophen) 1 Each Tablet 1 Tab PO PRN Q4HRS PRN Triamcinolone Acetonide 15 Gm Cream..g. 1 Opal TP BID Potassium Chloride 10 Meq Capsule.er 1 Cap PO TIDPC Culturelle (Lactobacillus Rhamnosus Gg) 1 Each Capsule 1 Each PO BID Duoneb 0.5-3(2.5) Mg/3 Ml (Albuterol/Ipratropium) 3 Ml Ampul.neb 3 Ml NEB QID Pulmicort (Budesonide) 0.5 Mg/2 Ml Ampul.neb 1 Vial NEB BID Albuterol Sulfate Neb Soln (Albuterol Sulfate) 2.5 Mg/3 Ml Vial.neb 1 Vial NEB PRN Q4HRS PRN TIM GAYLE DO Aug 11, 2017 13:32
[2017-08-11 13:39] LABS: ALBUMIN 2.7 g/dL (3.4-5.0); ALBUMIN/GLOBULIN RATIO 0.6 (1.0-1.7); CALCIUM 8.4 mg/dL (8.5-10.1); CREATININE 1.3 mg/dL (0.6-1.0); GFR 39.1; MAGNESIUM 1.9 mg/dL (1.8-2.4); POTASSIUM 4.1 mmol/L (3.5-5.1); TOTAL BILIRUBIN 0.4 mg/dL (0.2-1.0); TOTAL PROTEIN 6.9 g/dL (6.4-8.2)
[2017-08-11] MEDS: MELATONIN 3 MG TABLET PO PRN (19:57)
[2017-08-11 20:00] VITALS: BP 119/65
[2017-08-12] MEDS: IPRATRPIUM/ALBUTEROL 0.5/2.5MG 3 ML NEBU. NEB SCH (05:51)
[2017-08-12 06:56] VITALS: BP 144/73
[2017-08-12] MEDS: LACTOBACILLUS RHAMNOSUS GG 1 CAPSULE. PO SCH (08:34)
[2017-08-12] MEDS: POTASSIUM CHLORIDE 10 MEQ TABLET.ER. PO SCH (08:34)
[2017-08-12] MEDS: FUROSEMIDE 20 MG TABLET PO SCH (08:34)
[2017-08-12] MEDS: TRIAMCINOLONE ACETONIDE 0.5% TOPICAL CREAM 15GM TUBE. TP SCH (09:00)
[2017-08-12] MEDS: NYSTATIN 100,000 UNIT/GM TOPICAL CREAM 15GM TUBE. TP SCH (09:00)
[2017-08-12] MEDS: HYDROCORTISONE 2.5% TOPICAL OINTMENT 30GM TUBE. TP SCH (09:00)
== END 2017-08-12 10:29 | disposition home health service (06) | DRG 291 ==
LOC: 1 SOUTH 17:01 → LND 08-04 18:13
PROVIDERS: ADMIT Family Medicine; ATTEND Family Medicine
DX: I11.0 Hypertensive heart disease with heart failure (principal); E43 Unspecified severe protein-calorie malnutrition; J96.01 Acute respiratory failure with hypoxia; I44.2 Atrioventricular block, complete; R13.12 Dysphagia, oropharyngeal phase; L25.9 Unspecified contact dermatitis, unspecified cause; N28.9 Disorder of kidney and ureter, unspecified; G47.00 Insomnia, unspecified; Z66 Do not resuscitate; F10.10 Alcohol abuse, uncomplicated; I50.33 Acute on chronic diastolic (congestive) heart failure; D64.9 Anemia, unspecified; I35.1 Nonrheumatic aortic (valve) insufficiency; E78.5 Hyperlipidemia, unspecified; M19.90 Unspecified osteoarthritis, unspecified site; Z98.49 Cataract extraction status, unspecified eye; Z90.710 Acquired absence of both cervix and uterus; Z83.3 Family history of diabetes mellitus; Z82.49 Family history of ischemic heart disease and other diseases of the circulatory system; Z95.0 Presence of cardiac pacemaker; Z87.01 Personal history of pneumonia (recurrent); Z68.24 Body mass index [BMI] 24.0-24.9, adult
CPT/HCPCS: 36415; 80048; 80053; 82947; 83735; 85007; 85025; 85027; 87324; 93971; 94640; 94760; J1940; J7620; J7626; Q0167; 92610; 97110; 97116; 97530; 97535